=== PATIENT | male | born 1955 | race Caucasian/White ===

== ENCOUNTER 2025-02-12 12:58 | Outpatient (RCR) | payer MEDICARE, SELFPAY | END 2025-03-11 13:09 | disposition home or self-care (01) | LOC: HO.CR 12:58 | PROVIDERS: PCP Internal Medicine; Visit Provider Nurse Practitioner Family | DX: I21.21 ST elevation (STEMI) myocardial infarction involving left circumflex coronary artery (principal); I25.10 Atherosclerotic heart disease of native coronary artery without angina pectoris | CPT/HCPCS: 93798 ==

== ENCOUNTER 2025-02-12 15:11 | Emergency (ER) | payer MEDICARE, SELFPAY ==
--- NOTE | 2025-02-12 16:07 | ED_ITS ---
HPI - General Adult General Chief complaint: Extremity Problem Stated complaint: left foot swollen/discolored Related Data Allergies Allergy/AdvReac Type Severity Reaction Status Date / Time No Known Allergies Allergy Verified 02/12/25 16:11 [facility] Social History Social History Advance Directives: No Advance Directives Information Provided: No Physical Exam ED Vital Signs: Vital Signs - 24 hr 02/12/25 16:08 Temperature 97.4 F Pulse Rate 83 Respiratory Rate 16 Blood Pressure 107/56 L Pulse Oximetry 97 Oxygen Delivery Method Room Air BMI result Body Mass Index 20.6 Course Course Course Narrative: This is an RME: Additional HPI, ROS, PE not included below will be deferred to primary provider. RME assessment and note performed by: Norma Santacruz PA-C This is a 69 y/o M, with a hx of AAA 11/05/2024, VT 12/01/2024, STEMI with TO CX 12/20, COPD O2 dependent, PAF, HTN, who presents to the ER from cardiac rehab, with concerns for left foot numbness for the past week. Left foot, with strong DP pulse. Good coloration. Cardiac rehab also had concerns for resources needed, unable to afford food during half the month. Patient reports that he is feeling well, no current complaints. Plan: Labs, further ER evaluation needed. Reevaluation(s) Reevaluation #1: Patient left without completing treatment. Discharge Plan Discharge Clinical Impression: Foot pain Patient Disposition: Left W/O Completing Treatment Discharge Date/Time: 02/12/25 17:57
[2025-02-12 16:08] VITALS: BP 107/56; PULSE 83; RESP 16; TEMP 36.3; O2SAT 97; BMI 20.6
== END 2025-02-12 17:57 | disposition left against medical advice (07) ==
LOC: HO.ED 17:42
PROVIDERS: Emergency Provider Emergency Medicine
DX: M79.672 Pain in left foot (principal); M79.89 Other specified soft tissue disorders
CPT/HCPCS: 99281